=== PATIENT | female | born 1995 | race African-American/Black ===

== ENCOUNTER 2016-10-23 17:12 | Emergency (ER) | payer OTHER ==
[2016-10-23 17:22] VITALS: BP 122/80; PULSE 89; TEMP 98; BMI 25.8
[2016-10-23] MEDS ORDERED: ALBUTEROL SO4 2.5/IPRATROPIUM 0.5 INH SOL 3 ML VIAL.NEB. NEB ONE ×2 (17:49→17:53)
--- NOTE | 2016-10-23 17:59 | PDOC ---
History of Present Illness - General Chief Complaint: Cold Symptoms Stated Complaint: COLD SYMPTOMS Time Seen by Provider: 10/23/16 17:41 History Source: Patient Exam Limitations: No Limitations - History of Present Illness Initial Comments: 10/23/16 17:51 Patient is a 21-year-old female, no significant medical history patient admits to smoking large amounts of marijuana. Patient reports that she has a cough, productive, with blood-tinged sputum. Feels "mucus in her chest" Has been smoking marijuana more than normal. Reports tactile fever with chills and sweats at night. Patient reports that her mother was concerned that cough is from smoking marijuana. Past Medical History: Denies. Allergies: Penicillin Medications: None Family History: Non-contributory Social History: Denies smoking, alcohol use, or IVDU Review of Systems GENERAL/CONSTITUTIONAL: Tactile fever. No weakness. No weight change. HEAD, EYES, EARS, NOSE AND THROAT: No change in vision. No ear pain or discharge. Sore throat. CARDIOVASCULAR: No chest pain or shortness of breath. RESPIRATORY: Productive cough, no wheezing, single episode of blood-tinged sputum. GASTROINTESTINAL: No nausea, vomiting, diarrhea or constipation. No rectal bleeding. GENITOURINARY: No dysuria, frequency, or change in urination. MUSCULOSKELETAL: No joint or muscle swelling or pain. No neck or back pain. SKIN : No rash or easy bruising. NEUROLOGIC: No headache, vertigo, loss of consciousness, or loss of sensation. ALLERGIC/IMMUNOLOGIC: No hives or skin allergy. No latex allergy. Physical Exam: GENERAL: The patient is awake, alert, and fully oriented, in no acute distress. EYES: Pupils equal, round and reactive to light, extraocular movements intact, sclera anicteric, conjunctiva clear. ENT: Ears normal, nares patent, oropharynx clear without exudates. Moist mucous membranes. No uvula deviation NECK: Normal range of motion, supple without lymphadenopathy, JVD, or masses. LUNGS: Breath sounds equal, clear to auscultation bilaterally. No wheezes, and no crackles. Mildly decrease at the bases HEART: Regular rate and rhythm, normal S1 and S2 without murmur, rub or gallop. ABDOMEN: Soft, nontender, normoactive bowel sounds. No guarding, no rebound. No masses. No bruising or abrasions MUSCULOSKELETAL: Normal range of motion, no edema. No clubbing or cyanosis. No cords, erythema, or tenderness. No CVA Tenderness with fist palpation. NEUROLOGICAL: Cranial nerves II through XII grossly intact. Normal speech, normal gait. SKIN: Warm, Dry, normal turgor, no rashes or lesions noted. Past History - Past Medical History Allergies/Adverse Reactions: Allergies Allergy/AdvReac Type Severity Reaction Status Date / Time Penicillins Allergy Verified 10/23/16 17:22 Home Medications: Ambulatory Orders Albuterol Sulfate Inhaler - [Ventolin HFA Inhaler -] 1 - 2 inh PO Q4H #1 inhaler 10/23/16 Azithromycin [Zithromax 250mg Tablets -] 250 mg PO UTDICT #6 tab 10/23/16 - Psycho/Social/Smoking Cessation Hx Suicidal Ideation: No Smoking History: Never smoked Information on smoking cessation initiated: No Substance Use Type: Marijuana *Physical Exam - Vital Signs Last Vital Signs Temp Pulse Resp BP Pulse Ox 98 F 89 18 122/80 100 10/23/16 17:16 10/23/16 17:16 10/23/16 17:16 10/23/16 17:16 10/23/16 17:16 Medical Decision Making - Medical Decision Making 10/23/16 17:59 A/P: Patient with clinical signs of a URI, no rhonchi rales or wheezing. Patient states she has productive cough, brown tinged sputum with occasional blood tinged sputum after coughing heavily. Mother was concerned the patient was developing cough from smoking increased amounts of marijuana in brown paper. Explained to patient, smoking can increased symptoms in worsened symptoms. We will give her Combivent treatment and then reevaluate. 10/23/16 18:14 Patient states she feels better after Combivent treatment, will DC patient home encourage smoking cessation patient states she is unable to stop smoking marijuana, encourage patient to not use brown paper to smoke may cause increased irritation in her lungs. We'll DC patient home on azithromycin, encourage smoking cessation, albuterol, strict follow-up on Tuesday with PMD I discussed the physical exam findings, ancillary test results and final diagnoses with the patient. I answered all of the patient's questions. The patient was satisfied with the care received and felt comfortable with the discharge plan and treatment plan. The patient will call to arrange follow-up and will return to the Emergency Department with any new, persistent or worsening symptoms. *DC/Admit/Observation/Transfer Diagnosis at time of Disposition: Smoking history, Cough - Discharge Dispostion Disposition: HOME Condition at time of disposition: Good Admit: No - Prescriptions Prescriptions: Albuterol Sulfate Inhaler - [Ventolin HFA Inhaler -] 1 - 2 inh PO Q4H #1 inhaler Azithromycin [Zithromax 250mg Tablets -] 250 mg PO UTDICT #6 tab - Patient Instructions Printed Discharge Instructions: How to Quit Smoking, Cough Additional Instructions: Keep head of bed elevated 45 when sleeping Albuterol as needed for wheezing Smoking cessation Followup in the primary care doctor's office in 2 days for evaluation. If any respiratory distress, increased cough, inability to drink, increased wheezing please return immediately to emergency department.
== END 2016-10-23 18:21 | disposition home or self-care (01) ==
LOC: JERFT 17:12
PROC: 3E0F7GC Introduction of Other Therapeutic Substance into Respiratory Tract, Via Natural or Artificial Opening (ICD-10-PCS; principal; 2016-10-23)
DX: J06.9 Acute upper respiratory infection, unspecified (principal); F17.210 Nicotine dependence, cigarettes, uncomplicated; F12.10 Cannabis abuse, uncomplicated
CPT/HCPCS: 99281-25